=== PATIENT | male | born 1945 | race Caucasian/White ===

== ENCOUNTER 2017-12-01 12:34 | Emergency (ER) | payer OTHER ==
[~2017-12-01] VITALS: Ht 160 cm; Wt 77.6 kg
[~2017-12-01 12:34] MED LIST: AMLO5TAB PO; SIMV20TA6 PO; SYN.05 PO
--- NOTE | 2017-12-01 12:35 | NUR ---
Nyla ortiz in [facility] - 12/01/17 at 1240 by [facility] PT BIBA BLS TO BED 11
[2017-12-01 12:55] VITALS: BP 176/74
--- NOTE | 2017-12-01 13:10 | NUR ---
PT. CAME INTO THE ED DUE TO BLURRY VISION SINCE LAST NIGHT, DENIES ANY PAIN, RR EVEN AND UNLABORED, DENIES CHEST PAIN , DENIES SOB, DENIES N/V/D. PT. HAS EQUAL STRENGTH BILATERAL HAND AND SYMMETRICAL SMILE. PUPILS EQUAL ROUND AND REACTIVE BILATERALLY 2MM. PT. IS AAOX4. ER MD NOTIFIED. WILL CONTINUE TO MONITOR.
--- NOTE | 2017-12-01 13:24 | NUR ---
PT TAKEN TO CT IN WHEELCHAIR
--- NOTE | 2017-12-01 14:20 | NUR ---
PT. RESTING IN BED, RR EVEN AND UNLABORED. VSS. WILL CONTINUE TO MONITOR.
[2017-12-01 14:38] VITALS: BP 139/73
--- NOTE | 2017-12-01 14:38 | NUR ---
Patient discharged with v/s stable. Written and verbal after care instructions given and explained. Patient verbalized understanding. Ambulatory with steady gait. All questions addressed prior to discharge. Advised to follow up with PMD.
== END 2017-12-01 14:38 | disposition home or self-care (01) ==
LOC: MED 12:34
DX: H53.2 Diplopia (principal); I10 Essential (primary) hypertension; Z71.6 Tobacco abuse counseling; Z79.899 Other long term (current) drug therapy
CPT/HCPCS: 70450; 70480; 99284

== ENCOUNTER 2019-07-16 01:10 | Observation (INO) | payer MEDICARE, MEDICAID ==
[~2019-07-16] VITALS: Ht 160 cm; Wt 73.9 kg
[2019-07-16 01:10] VITALS: BP 163/80
[~2019-07-16 01:10] MED LIST changes: +ASPI-1718 PO; +SIMV-31 PO; -SIMV20TA6 PO; -SYN.05 PO
[2019-07-16] MEDS ORDERED: NACL 0.9% 1,000 ML IV ONE (01:35)
[2019-07-16] MEDS ORDERED: ASPIRIN 81 MG TAB.CHEW PO ONE (01:35)
[2019-07-16] MEDS ORDERED: NITROGLYCERIN 2% 1 GM PKT TP ONE (01:45)
[2019-07-16] MEDS ORDERED: MORPHINE SULFATE 2 MG/ML SYR IVP ONE (01:45)
[2019-07-16 01:53] LABS: BASOPHILS # (AUTO) 0.1 K/uL (0.00-0.22); BASOPHILS % (AUTO) 1.1 % (0.0-2.0); EOSINOPHILS # (AUTO) 0.2 K/uL (0-0.4); EOSINOPHILS % (AUTO) 2.1 % (0.0-4.0); HEMATOCRIT 47.5 % (36-52); HEMOGLOBIN 15.7 g/dL (12.0-18.0); LYMPHOCYTES # (AUTO) 3.1 K/uL (2.0-11.5); LYMPHOCYTES % (AUTO) 35.8 % (20.5-51.1); MEAN CORPUSCULAR HEMOGLOBIN 30 pg (27-31); MEAN CORPUSCULAR HGB CONC 33 g/dL (33-37); MONOCYTES # (AUTO) 0.7 K/uL (0.8-1.0); NEUTROPHILS # (AUTO) 4.6 K/uL (1.8-7.7); PLATELET COUNT (AUTO) 179 K/uL (140-450); RED BLOOD CELL COUNT(AUTO) 5.22 MIL/uL (4.20-6.10); RED CELL DISTRIBUTION WIDTH 13.6 % (11.6-13.7); WHITE BLOOD COUNT (AUTO) 8.7 K/uL (4.8-10.8)
[2019-07-16 02:13] LABS: PROTHROMBIN TIME 10.3 secs (10.8-13.4)
[2019-07-16 02:15] LABS: ALBUMIN 3.7 g/dL (3.4-5.0); ANION GAP 13.6 (8-16); ASPARTATE AMINOTRANSFERASE 13 U/L (15-37); CARBON DIOXIDE 27.1 mmol/L (21-32); CHLORIDE 101 mmol/L (98-107); GLUCOSE 126 mg/dL (74-106); POTASSIUM 3.7 mmol/L (3.5-5.1); SODIUM SERUM 138 mmol/L (136-145); TOTAL BILIRUBIN 0.3 mg/dL (0.0-1.0); UREA NITROGEN, BLOOD 29 mg/dL (7-18)
[2019-07-16] MEDS ORDERED: HYDROcodone/APAP 5/325 MG 1 TAB TAB PO PRN ×2 (04:35→05:00)
[2019-07-16] MEDS ORDERED: MORPHINE SULFATE 4 MG/ML SYR IVP PRN ×2 (04:35→05:00)
[2019-07-16] MEDS ORDERED: ONDANSETRON 4 MG/2 ML VIAL IVP PRN ×2 (04:35→05:00)
[2019-07-16] MEDS ORDERED: ACETAMINOPHEN 325 MG TAB PO PRN ×2 (04:35→05:00)
[2019-07-16] MEDS ORDERED: LORazepam 2 MG/ML VIAL IVP PRN ×2 (04:35→05:00)
[2019-07-16] MEDS ORDERED: METF500T2 PO (04:37)
[2019-07-16] MEDS ORDERED: METO25TE2 PO (04:42)
[2019-07-16 08:00] VITALS: BP 116/86
[2019-07-16 12:00] VITALS: BP 139/70
[2019-07-16] MEDS ORDERED: ATOR40TA PO (13:06)
[2019-07-16] MEDS ORDERED: INSULIN LISPRO SLIDING SCALE 100 UNITS/ML VIAL SUBQ PRN (14:25)
[2019-07-16] MEDS ORDERED: DEXTROSE 50% 50 ML SYR IVP PRN (14:25)
[2019-07-16 16:00] VITALS: BP 103/51
[2019-07-16] MEDS: BLOOD GLUCOSE MONITORING 1 DEV DEV FS SCH ×2 (16:30→21:33)
[2019-07-16] MEDS: metFORMIN 500 MG TAB PO SCH (17:32)
[2019-07-16] MEDS ORDERED: NICOTINE TRANSD SYS 14 MG/24 HR PATCH TD SCH (18:40)
[2019-07-16 20:00] VITALS: BP 157/66
[2019-07-16] MEDS ORDERED: METFORMIN HCL PO SCH (21:00)
[2019-07-17] VITALS: BP 118/66
[2019-07-17 04:00] VITALS: BP 142/78
[2019-07-17] MEDS: BLOOD GLUCOSE MONITORING 1 DEV DEV FS SCH ×2 (05:30→12:07)
[2019-07-17 08:00] VITALS: BP 126/60
[2019-07-17] MEDS: metFORMIN 500 MG TAB PO SCH (08:00)
[2019-07-17] MEDS ORDERED: ATORVASTATIN 20 MG TAB PO SCH (09:00)
[2019-07-17] MEDS ORDERED: ASPIRIN 81 MG TAB.CHEW PO SCH ×3 (09:00)
[2019-07-17] MEDS ORDERED: METOPROLOL SUCCINATE 50 MG TABER PO SCH (09:00)
[2019-07-17] MEDS ORDERED: REGADENOSON 0.4 MG/5 ML SYR IV SCH (09:00)
[2019-07-17] MEDS ORDERED: amLODIPine 5 MG TAB PO SCH (09:00)
[2019-07-17] MEDS ORDERED: NICOTINE TRANSD SYS 14 MG/24 HR PATCH TD SCH (09:00)
[2019-07-17 12:00] VITALS: BP 133/65
[2019-07-17] MEDS ORDERED: INFLUENZA VACCINE QUAD 0.5 ML SYR IMVAC PRN (13:25)
[2019-07-17] MEDS ORDERED: PNEUMOCOCCAL VACCINE 23 MCG/0.5 ML VIAL IMVAC SCH (13:30)
== END 2019-07-17 14:30 | disposition home or self-care (01) ==
LOC: MED 01:10 → MTU 04:38 → MED 04:55
PROVIDERS: ADMIT Hospitalist; ATTEND Hospitalist
DX: R07.89 Other chest pain (principal); I10 Essential (primary) hypertension; E78.5 Hyperlipidemia, unspecified; E11.9 Type 2 diabetes mellitus without complications; R00.1 Bradycardia, unspecified; R94.30 Abnormal result of cardiovascular function study, unspecified; F17.210 Nicotine dependence, cigarettes, uncomplicated; Z23 Encounter for immunization; Z79.4 Long term (current) use of insulin; Z79.82 Long term (current) use of aspirin; Z79.899 Other long term (current) drug therapy
CPT/HCPCS: 36415; 71045; 80053; 82948; 84484; 85025; 85610; 85730; 87081; 90732; 96372; 99285; G0378; J1815; J2270; J2785; J7030; Q0092

== ENCOUNTER 2022-05-10 14:38 | Emergency (ER) | payer MEDICARE, OTHER ==
[~2022-05-10] VITALS: Ht 160 cm; Wt 72.1 kg
[~2022-05-10 14:38] MED LIST changes: -ASPI-1718 PO; +ASPI-1822 PO; +ATOR40TA PO; +METF-1139 PO; +METO25TE2 PO; -SIMV-31 PO
[2022-05-10 14:59] VITALS: BP 183/86
--- NOTE | 2022-05-10 15:08 | NUR ---
DR. MENDEZ EVALUATING PATIENT IN TRIAGE
[2022-05-10 15:32] LABS: BASOPHILS % (AUTO) 0.7 % (0.0-2.0); EOSINOPHILS # (AUTO) 0.1 K/uL (0-0.4); EOSINOPHILS % (AUTO) 1.2 % (0.0-4.0); HEMATOCRIT 46.9 % (36-52); LYMPHOCYTES # (AUTO) 1.3 K/uL (2.0-11.5); LYMPHOCYTES % (AUTO) 21.5 % (20.5-51.1); MEAN CORPUSCULAR HEMOGLOBIN 31 pg (27-31); MEAN CORPUSCULAR HGB CONC 34 g/dL (33-37); MEAN CORPUSCULAR VOLUME 89.7 fL (80-94); MONOCYTES # (AUTO) 0.7 K/uL (0.8-1.0); NEUTROPHILS % (AUTO) 65.6 % (42.2-75.2); PLATELET COUNT (AUTO) 179 K/uL (140-450); RED BLOOD CELL COUNT(AUTO) 5.23 MIL/uL (4.20-6.10); RED CELL DISTRIBUTION WIDTH 13.4 % (11.6-13.7); WHITE BLOOD COUNT (AUTO) 6.1 K/uL (4.8-10.8)
[2022-05-10 15:46] LABS: ANION GAP 11.1 (8-16); CARBON DIOXIDE 32.3 mmol/L (21-32); CHLORIDE 101 mmol/L (98-107); CREATININE 1.1 mg/dL (0.6-1.3); GLUCOSE 115 mg/dL (74-106); POTASSIUM 4.4 mmol/L (3.5-5.1); SODIUM SERUM 140 mmol/L (136-145); UREA NITROGEN, BLOOD 17 mg/dL (7-18)
--- NOTE | 2022-05-10 18:25 | NUR ---
Called patient in lobby/outside ER lobby for discharge; no answer.
--- NOTE | 2022-05-10 18:32 | NUR ---
CALLED PT IN LOBBY; NO ANSWER.
--- NOTE | 2022-05-10 18:40 | NUR ---
CALLED IN LOBBY; NO ANSWER. PATIENT LEFT WITHOUT D/C PAPERWORK.
--- NOTE | 2022-05-10 18:41 | NUR ---
PATIENT LEFT WITHOUT DISCHARGE PAPERWORK.
== END 2022-05-10 18:41 | disposition home or self-care (01) ==
LOC: MED 14:38
DX: R25.1 Tremor, unspecified (principal); E11.9 Type 2 diabetes mellitus without complications; I10 Essential (primary) hypertension; I25.2 Old myocardial infarction; Z79.84 Long term (current) use of oral hypoglycemic drugs; Z79.82 Long term (current) use of aspirin; Z79.899 Other long term (current) drug therapy
CPT/HCPCS: 36415; 80048; 84484; 85025; 93005; 99284

== ENCOUNTER 2023-04-08 00:08 | Emergency (ER) | payer OTHER ==
[~2023-04-08] VITALS: Ht 160 cm; Wt 63.0 kg
[2023-04-08 00:16] VITALS: BP 135/86; PULSE 71; RESP 16; TEMP 97.8; O2SAT 96
[2023-04-08 01:12] LABS: BASOPHILS % (AUTO) 0.4 % (0.0-2.0); EOSINOPHILS # (AUTO) 0.2 K/uL (0-0.4); EOSINOPHILS % (AUTO) 2.4 % (0.0-4.0); HEMATOCRIT 44.5 % (36-52); LYMPHOCYTES % (AUTO) 33.6 % (20.5-51.1); MEAN CORPUSCULAR HEMOGLOBIN 31 pg (27-31); MEAN CORPUSCULAR HGB CONC 34 g/dL (33-37); MONOCYTES # (AUTO) 0.6 K/uL (0.8-1.0); MONOCYTES % (AUTO) 7.2 % (1.7-9.3); NEUTROPHILS % (AUTO) 56.4 % (42.2-75.2); PLATELET COUNT (AUTO) 183 K/uL (140-450); RED BLOOD CELL COUNT(AUTO) 4.88 MIL/uL (4.20-6.10); RED CELL DISTRIBUTION WIDTH 13.8 % (11.6-13.7); WHITE BLOOD COUNT (AUTO) 8.9 K/uL (4.8-10.8)
[2023-04-08 01:21] LABS: ALANINE AMINOTRANSFERASE 17 U/L (12-78); ALBUMIN 3.7 g/dL (3.4-5.0); ALKALINE PHOSPHATASE 81 U/L (50-136); ANION GAP 11.6 (8-16); ASPARTATE AMINOTRANSFERASE 11 U/L (15-37); CALCIUM 8.4 mg/dL (8.5-10.1); CARBON DIOXIDE 28.4 mmol/L (21-32); CHLORIDE 101 mmol/L (98-107); CREATININE 1.1 mg/dL (0.6-1.3); GLUCOSE 97 mg/dL (74-106); SODIUM SERUM 137 mmol/L (136-145); TOTAL BILIRUBIN 0.4 mg/dL (0.0-1.0); TOTAL PROTEIN, SERUM 7.4 g/dL (6.4-8.2); UREA NITROGEN, BLOOD 26 mg/dL (7-18)
[2023-04-08 04:15] VITALS: BP 145/71; PULSE 58; RESP 14; O2SAT 95
== END 2023-04-08 04:11 | disposition home or self-care (01) ==
LOC: MED 00:08
DX: R53.81 Other malaise (principal); I11.9 Hypertensive heart disease without heart failure; E11.9 Type 2 diabetes mellitus without complications; Z79.4 Long term (current) use of insulin; Z79.899 Other long term (current) drug therapy
CPT/HCPCS: 36415; 71045; 80053; 83880; 84484; 85025; 93005; 99285; Q0092

== ENCOUNTER 2024-01-28 19:42 | Emergency (ER) | payer OTHER ==
[~2024-01-28] VITALS: Ht 160 cm; Wt 66.7 kg
[2024-01-28 19:48] VITALS: BP 184/85; PULSE 60; RESP 18; TEMP 98.2; O2SAT 96
[2024-01-28] MEDS: CLONIDINE HYDROCHLORIDE 0.1 MG TAB PO ONE (20:38)
[2024-01-28 20:39] LABS: BASOPHILS % (AUTO) 0.6 % (0.0-2.0); EOSINOPHILS # (AUTO) 0.1 K/uL (0-0.4); EOSINOPHILS % (AUTO) 2.3 % (0.0-4.0); HEMATOCRIT 41.5 % (36-52); HEMOGLOBIN 13.9 g/dL (12.0-18.0); LYMPHOCYTES # (AUTO) 2.3 K/uL (2.0-11.5); LYMPHOCYTES % (AUTO) 34.2 % (20.5-51.1); MEAN CORPUSCULAR HEMOGLOBIN 30 pg (27-31); MEAN CORPUSCULAR HGB CONC 34 g/dL (33-37); MEAN CORPUSCULAR VOLUME 90.1 fL (80-94); MONOCYTES # (AUTO) 0.7 K/uL (0.8-1.0); MONOCYTES % (AUTO) 10.1 % (1.7-9.3); NEUTROPHILS # (AUTO) 3.5 K/uL (1.8-7.7); NEUTROPHILS % (AUTO) 52.8 % (42.2-75.2); PLATELET COUNT (AUTO) 170 K/uL (140-450); RED BLOOD CELL COUNT(AUTO) 4.61 MIL/uL (4.20-6.10); WHITE BLOOD COUNT (AUTO) 6.6 K/uL (4.8-10.8)
[2024-01-28 21:09] LABS: ALANINE AMINOTRANSFERASE 35 U/L (12-78); ALBUMIN 3.4 g/dL (3.4-5.0); ALKALINE PHOSPHATASE 72 U/L (50-136); ANION GAP 11.5 (8-16); ASPARTATE AMINOTRANSFERASE 32 U/L (15-37); CALCIUM 8.2 mg/dL (8.5-10.1); CARBON DIOXIDE 28.4 mmol/L (21-32); CHLORIDE 102 mmol/L (98-107); CREATININE 1.1 mg/dL (0.6-1.3); GLUCOSE 124 mg/dL (74-106); POTASSIUM 3.9 mmol/L (3.5-5.1); SODIUM SERUM 138 mmol/L (136-145); TOTAL BILIRUBIN 0.4 mg/dL (0.0-1.0); TOTAL PROTEIN, SERUM 7.1 g/dL (6.4-8.2); UREA NITROGEN, BLOOD 23 mg/dL (7-18)
[2024-01-28 22:26] VITALS: BP 120/75; PULSE 60; RESP 18; TEMP 98; O2SAT 97
== END 2024-01-28 22:26 | disposition home or self-care (01) ==
LOC: MED 19:42
DX: I10 Essential (primary) hypertension (principal); R05.9 Cough, unspecified; E78.5 Hyperlipidemia, unspecified; E11.9 Type 2 diabetes mellitus without complications; I25.2 Old myocardial infarction; Z79.2 Long term (current) use of antibiotics; Z79.84 Long term (current) use of oral hypoglycemic drugs; Z79.899 Other long term (current) drug therapy
CPT/HCPCS: 36415; 70450; 80053; 82948; 84484; 85025; 93005; 99284